=== PATIENT | male | born 1990 | race Caucasian/White ===

== ENCOUNTER 2020-07-08 14:30 | Day surgery (SDC) | payer OTHER ==
[~2020-07-08] VITALS: Ht 177.8 cm; Wt 74.4 kg
--- NOTE | ~2020-07-08 | O ---
[facility] [place] [place] [address] OPERATIVE REPORT Name: SREE NEWSOME Room #: 150-3 [facility] M.R.#: [id number] Admission: 07/08/20 Attend Phys: Celestino Mccarty, Discharge: Date of : 86 Report #: [id number] THIS REPORT FOR: cc: FAM - Family physician unknown FAM - Family physician unknown Celestino Mccarty MD ~ CC: [facility] unknown Celestino Quigley DATE OF SERVICE: 07/09/2020 PREOPERATIVE DIAGNOSIS: Right groin mass, benign, 1.5 cm. POSTOPERATIVE DIAGNOSIS: Right groin mass, benign, 1.5 cm. OPERATION: Excision of benign right groin mass, 1.5 cm. SURGEON: Celestino Mccarty MD. ANESTHESIA: General. ESTIMATED BLOOD LOSS: Minimal. SPECIMEN: Right groin mass. DESCRIPTION OF PROCEDURE: After informed consent was obtained, the patient was brought to the operating room and placed supine. SCDs were placed and working, preoperative antibiotics were administered, general anesthesia was induced. The right groin was prepped and draped in the usual sterile fashion. A 1 cm elliptical incision was made around the mass. Cautery dissection was made down to the subcutaneous tissue. It was excised. The area was then copiously irrigated. Given that it was infected, I did not close the wound. It was packed with sterile gauze. Sterile dressings were applied. COMPLICATIONS: None. DISPOSITION: The patient was taken to recovery in satisfactory condition. By: [id number] Celestino Mccarty MD /nt
[~2020-07-08 14:30] MED LIST: VITAMIN D350 MCG PO
[2020-07-09 08:35] VITALS: BP 120/80
[2020-07-09] MEDS ORDERED: NORCO 10-325 T1 EACH PO (10:14)
[2020-07-09 10:28] VITALS: BP 120/80
--- NOTE | 2020-07-13 12:07 | PATH ---
[facility] [address] [place] [address] PATHOLOGY RPT PROCEDURE Name: JASIEL RODRÍGUEZ Room #: [place] [facility].R.#: [id number] Admission: 07/08/20 Date of : 86 Discharge: 07/09/20 Report #: [id number] Path Case #: [id number] [facility] Accession Number: [id number] . 01 Material submitted: . groin - RIGHT GROIN MASS. Modifiers: right . 01 Clinical history: . EXCISION MASS BENIGN NEOPLASM OF TRUNK . 02 Diagnosis: Skin and subcutaneous tissue, right groin mass, excision: - Marked acute inflammation associated with ulceration extending into deep subcutaneous tissue. - Detached separate fragments of acellular keratinous layers, see comment. . (IUV:pit 07/12/2020) QTP 07/12/2020 1703 Local . 02 Comment: Findings may be suggestive of a ruptured keratinous cyst. A residual cyst is not identified within the intact tissue. Extensive acute, chronic inflammation as well as reparative changes are identified. There is no evidence of malignancy. (IUV:pit 07/12/2020) . 02 Electronically signed: . Isha Shepherd MD, Pathologist NPI- [id number] . 01 Gross description: . The specimen is received in formalin, labeled "Jasiel Rodríguez, right groin mass". Received is a segment of falcon-brown, wrinkled skin with attached underlying soft tissue measuring 1.8 x 1.4 x 3.0 cm in greatest dimensions. Sectioning reveals pale daniels to red-brown cut surfaces. Also received within the specimen container is a segment of falcon-daniels tissue measuring 1.2 x 1.1 x 1.1 cm in greatest dimensions. The specimen is submitted representatively in cassette A1. (CAA; 07/10/2020) QAC/QA 07/10/2020 1831 Local . 02 Pathologist provided ICD-10: L08.9, L98.499 . 02 CPT . [id number] [address] [address] PATHOLOGY RPT PROCEDURE Name: JASIEL RODRÍGUEZ Room #: DEP [facility].R.#: [id number] Admission: 07/08/20 Date of : 86 Discharge: 07/09/20 Report #: [id number] Path Case #: [id number] Specimen Comment: A courtesy copy of this report has been sent to [phone] Specimen Comment: Report sent to Performed at: [address] [facility] [address], [place], [place] [id number] MD Harvinder Winston MD Phone: [phone] Performed at: [address] [facility] [id number] MD Isha Shepherd MD Phone: [phone]
== END 2020-07-09 11:15 | disposition home or self-care (01) ==
LOC: EDSEX → OR 14:30 → TBA 07-09 08:13 → OR 07-09 08:44
PROVIDERS: ATTEND Surgery
DX: L08.89 Other specified local infections of the skin and subcutaneous tissue (principal); L98.499 Non-pressure chronic ulcer of skin of other sites with unspecified severity; Z98.890 Other specified postprocedural states; Z79.899 Other long term (current) drug therapy; Z20.828 Contact with and (suspected) exposure to other viral communicable diseases
CPT/HCPCS: 50010; 50101; 50386; 50403; 62110; 62900; 70005